=== PATIENT | female | born 1995 | race Hispanic/Latino ===

== ENCOUNTER 2021-11-23 22:04 | Emergency (ER) | payer SELFPAY ==
[~2021-11-23] VITALS: Ht 154.9 cm; Wt 107.0 kg
[2021-11-23] MEDS ORDERED: ACETAMINOPHEN 325 MG TAB PO ONE (22:30)
[2021-11-23] MEDS ORDERED: KETOROLAC 30MG VIAL (30MG/ML) IVP ONE (22:30)
[2021-11-23] MEDS ORDERED: ONDANSETRON 4MG INJ IVP ONE (22:30)
[2021-11-23] MEDS ORDERED: 0.9%NACL 1000ML 1,000 ML IV ONE (22:30)
[2021-11-23 22:35] LABS: BASOPHILS % (AUTO) 0.3 % (0.0-5.0); EOSINOPHILS % (AUTO) 0.1 % (0.0-8.0); HEMATOCRIT 32.8 % (36-48); LYMPHOCYTES % (AUTO) 7.8 % (21.0-51.0); MEAN CORPUSCULAR HEMOGLOBIN 25.1 pg (27.0-33.0); MEAN CORPUSCULAR HGB CONC 32.9 g/dL (32.0-36.0); MEAN CORPUSCULAR VOLUME 76.1 fL (79-99); MONOCYTES % (AUTO) 9.6 % (3.0-13.0); NEUTROPHILS % (AUTO) 81.8 % (40.0-77.0); PLATELET COUNT (AUTO) 249 K/uL (130-400); RED BLOOD CELL COUNT(AUTO) 4.31 MIL/uL (4.00-5.50); RED CELL DISTRIBUTION WIDTH 15.4 % (11.0-15.5); WHITE BLOOD COUNT (AUTO) 15.7 K/uL (4.8-10.8)
[2021-11-23 22:43] LABS: CREATININE 1.2 mg/dL (0.5-1.5); POTASSIUM 3.3 mmol/L (3.5-5.1)
[2021-11-23 22:47] LABS: ALBUMIN 3.3 g/dL (3.5-5.0); TOTAL PROTEIN, SERUM 7.9 g/dL (6.0-8.3)
[2021-11-23 23:00] LABS: APPEARANCE,URINE CLOUDY (CLEAR); BILIRUBIN,URINE SMALL (NEGATIVE); COLOR,URINE YELLOW (YELLOW); GLUCOSE, URINE (UA) NEGATIVE (NEGATIVE); KETONES,URINE 5 mg/dL (NEGATIVE); LEUKOCYTE ESTERASE ,URINE MODERATE (NEGATIVE); NITRATE,URINE POSITIVE (NEGATIVE); OCCULT BLOOD,URINE LARGE (NEGATIVE); PROTEIN,URINE 100 mg/dL (NEGATIVE); UROBILINOGEN,URINE 0.2 mg/dL (0.2-1.0)
[2021-11-23 23:03] LABS: HCG,QUALITATIVE URINE NEGATIVE (NEGATIVE)
[2021-11-23 23:15] LABS: BACTERIA,URINE Moderate /HPF (None Seen); WBC,URINE 51-100 /HPF (0-1)
[2021-11-23 23:16] LABS: MUCUS,URINE Rare LPF (None Seen); SQUAMOUS EPITHELIAL CELL,UR Few /HPF (0-2)
[2021-11-24] MEDS ORDERED: CEFTRIAXONE 2GM VIAL IVP ONE
[2021-11-24] MEDS ORDERED: CEPH500B PO (00:23)
[2021-11-24] MEDS ORDERED: DICL50TA9 PO (00:23)
[2021-11-24 00:26] VITALS: BP 91/49
== END 2021-11-24 00:34 | disposition home or self-care (01) ==
LOC: EDBD 22:04 → EDH 22:04
DX: N10 Acute pyelonephritis (principal); Z79.1 Long term (current) use of non-steroidal anti-inflammatories (NSAID)
CPT/HCPCS: 99284; 74176; 96374; 96375; 96361; 80053; 83690; 85025; 87040 ×2; 87077 ×2; 87088; 87186 ×2; 83605; 81001; 81025; 36415; J7030; J0696; J2405; J1885